=== PATIENT | female | born 1995 | race African-American/Black ===

== ENCOUNTER 2020-04-21 03:06 | Emergency (ER) | payer OTHER, SELFPAY ==
[~2020-04-21] VITALS: Ht 167.6 cm; Wt 95.3 kg
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
--- NOTE | 2020-04-21 04:02 | NUR ---
RADIOLOGY AT BEDSIDE FOR CXR
--- NOTE | 2020-04-21 04:43 | NUR ---
Patient discharged to home in stable condition. Written and verbal after care instructions given. Patient verbalizes understanding of instruction.Pt ambulatory with a steady gait
[2020-04-21 04:46] VITALS: BP 127/82
== END 2020-04-21 04:46 | disposition home or self-care (01) ==
LOC: ER 03:06
DX: J02.8 Acute pharyngitis due to other specified organisms (principal); Z20.828 Contact with and (suspected) exposure to other viral communicable diseases; F17.210 Nicotine dependence, cigarettes, uncomplicated; Z88.0 Allergy status to penicillin; R94.31 Abnormal electrocardiogram [ECG] [EKG]
CPT/HCPCS: 71045; 87426; 93005; 99285; 99406; C9803

== ENCOUNTER 2021-09-15 20:13 | Emergency (ER) | payer SELFPAY ==
[~2021-09-15] VITALS: Ht 170.2 cm; Wt 90.7 kg
[2021-09-15 20:13] VITALS: BP 150/80
[2021-09-15] MEDS ORDERED: MUPI22OI2 TP (21:42)
== END 2021-09-15 22:01 | disposition home or self-care (01) ==
LOC: ER 20:16
DX: R21 Rash and other nonspecific skin eruption (principal); F17.200 Nicotine dependence, unspecified, uncomplicated; Z88.0 Allergy status to penicillin

== ENCOUNTER 2022-04-08 23:35 | Emergency (ER) | payer SELFPAY ==
[~2022-04-08] VITALS: Ht 170.2 cm; Wt 90.7 kg
[~2022-04-08 23:35] MED LIST: MUPI22OI2 TP
[2022-04-09 00:20] VITALS: BP 131/86
--- NOTE | 2022-04-09 01:06 | NUR ---
Patient discharged to home in stable condition. Written and verbal after care instructions given. Patient verbalizes understanding of instruction.
== END 2022-04-09 01:22 | disposition home or self-care (01) ==
LOC: ER 23:38
DX: M25.561 Pain in right knee (principal); Z88.0 Allergy status to penicillin; Z79.899 Other long term (current) drug therapy

== ENCOUNTER 2024-06-07 13:49 | Emergency (ER) | payer MEDICAID ==
[~2024-06-07] VITALS: Ht 170.2 cm; Wt 95.3 kg
[2024-06-07 14:18] VITALS: BP 120/69; TEMP 98.2
[2024-06-07] MEDS ORDERED: CLIN300C12 PO (14:29)
[2024-06-07] MEDS ORDERED: KETO10TA2 PO (14:29)
[2024-06-07] MEDS ORDERED: ACETAMINOPHEN ES 500 MG TABLET ONE (14:35)
[2024-06-07] MEDS ORDERED: IBUPROFEN 400 MG TABLET ONE (14:36)
[2024-06-07] MEDS: ACETAMINOPHEN ES 500 MG TABLET PO ONE (14:40)
[2024-06-07] MEDS: IBUPROFEN 400 MG TABLET PO ONE (14:40)
[2024-06-07 14:41] VITALS: O2SAT 99
== END 2024-06-07 14:42 | disposition home or self-care (01) ==
LOC: ER 13:55
DX: K08.89 Other specified disorders of teeth and supporting structures (principal); F12.90 Cannabis use, unspecified, uncomplicated; F17.200 Nicotine dependence, unspecified, uncomplicated; Z87.19 Personal history of other diseases of the digestive system; Z88.0 Allergy status to penicillin

== ENCOUNTER 2025-02-28 17:40 | Emergency (ER) | payer MEDICAID, OTHER ==
[~2025-02-28] VITALS: Ht 170.2 cm; Wt 103.4 kg
[~2025-02-28 17:40] MED LIST changes: +CLIN300C12 PO; +KETO10TA2 PO
[2025-02-28 17:54] VITALS: BP 133/71; TEMP 98.2
[2025-02-28] MEDS ORDERED: MUPI15CR TP (19:48)
[2025-02-28] MEDS ORDERED: CLIN300C12 PO (19:48)
[2025-02-28 19:55] VITALS: O2SAT 98
== END 2025-02-28 19:56 | disposition home or self-care (01) ==
LOC: ER 17:40
DX: L01.00 Impetigo, unspecified (principal); F12.90 Cannabis use, unspecified, uncomplicated; F17.200 Nicotine dependence, unspecified, uncomplicated; Z87.19 Personal history of other diseases of the digestive system; Z88.0 Allergy status to penicillin